=== PATIENT | male | born 1990 | race Two or more races ===

== ENCOUNTER 2016-10-23 18:46 | Emergency (ER) | payer MEDICAID ==
[~2016-10-23] VITALS: Ht 167.6 cm; Wt 186.0 kg
[2016-10-23] MEDS ORDERED: SODIUM CHLORIDE 0.9% 1,000 ML IV ONE (21:00)
[2016-10-23] MEDS ORDERED: MORPHINE SULFATE 4 MG/ML SYRG IV ONE (21:00)
[2016-10-23] MEDS ORDERED: ONDANSETRON HCL 4 MG/2 ML VIAL IV ONE (21:00)
[2016-10-23] MEDS ORDERED: SODIUM CHLORIDE 0.9% 1,000 ML IV SCH (21:13)
[2016-10-23] MEDS ORDERED: ONDANSETRON HCL 4 MG/2 ML VIAL IV PRN (21:15)
[2016-10-23 21:29] LABS: Basophils # (auto) 0 uL; Basophils % (auto) 0.1 % (0.0-2.0); Eosinophils # (auto) 0 uL; Eosinophils % (auto) 0.1 % (0.0-7.0); Hematocrit 43.9 % (41.0-53.0); Hemoglobin 14.8 g/dL (13.5-17.5); Lymphocytes # (auto) 1.2 uL; Lymphocytes % (auto) 5.9 % (10.0-50.0); Mean Corpuscular Hemoglobin 30.5 pg (28.0-32.0); Mean Corpuscular Hgb Conc. 33.6 g/dL (32.0-36.0); Mean Corpuscular Volume 90.8 fL (80.0-100.0); Mean Platelet Volume 10.6 fL (7.4-10.4); Monocytes # (auto) 0.4 uL; Neutrophils # (auto) 18.3 uL; Neutrophils % (auto) 91.9 % (37.0-80.0); Platelet Count (auto) 243 10^3/uL (140-450); Red Cell Distribution Width 14.7 % (11.6-16.0); SUSPECT VIEW TRANSMISSION; White Blood Cell 19.9 10^3/uL (4.4-10.8)
[2016-10-23 21:50] LABS: BUN/Creatinine Ratio 13.3; Calcium 8.4 mg/dL (8.5-10.1); Potassium 4.2 mmol/L (3.5-5.1)
[2016-10-23 21:56] LABS: INR 0.95 (0.9-1.15); Prothrombin Time 10.4 sec (9.37-12.3)
[2016-10-24] MEDS: HYDROmorphone HCL 2 MG/ML VL IV PRN ×2 (00:53→02:17)
[2016-10-24 02:14] VITALS: BP 145/62
== END 2016-10-24 02:22 | disposition short-term general hospital (02) ==
LOC: EDBD 18:46 → ER 18:46
DX: S72.8X1A Other fracture of right femur, initial encounter for closed fracture (principal); I10 Essential (primary) hypertension; V43.52XA Car driver injured in collision with other type car in traffic accident, initial encounter; Y93.89 Activity, other specified; Y99.8 Other external cause status; Y92.410 Unspecified street and highway as the place of occurrence of the external cause
CPT/HCPCS: 36415; 51702; 73552; 73562; 73590; 80048; 85025; 85610; 86850; 86900; 86901; 96361; 96374; 96375; 99285; J1170; J2270; J2405; J7030